=== PATIENT | female | born 1985 | race Caucasian/White ===

== ENCOUNTER 2021-02-25 07:44 | Day surgery (SDC) | payer BC, OTHER ==
[~2021-02-25 07:44] MED LIST: Midazolam 1 MG/ML 2 ML SDV ONE; Propofol 200 MG/20 ML SDV ONE; Sodium Chloride 0.9% 0 ML ONE; Sodium Tetradecyl Sulfate 1% 20 MG/2 ML SDV ONE; fentaNYL 100 MCG/2 ML SDV ONE
[2021-02-25] MEDS: Sodium Chloride 0.9% 1,000 ML IV SCH (08:37)
[2021-02-25] MEDS ORDERED: Propofol 200 MG/20 ML SDV ONE (10:43)
[2021-02-25] MEDS: Lidocaine 1% w/EPINEPHrine 50 ML, Sodium Bicarbonate 5 MEQ in Sodium Chloride 0.9% 950 ML INJECT ONE (10:50)
[2021-02-25] MEDS: Lidocaine 1% with EPINEPHrine 1:100,000 50 ML MDV ONE (10:50)
[2021-02-25] MEDS: Acetaminophen 325 MG Tab PO PRN (11:42)
--- NOTE | 2021-02-26 09:11 | OR ---
DATE OF PROCEDURE: 02/25/2021 SURGEON: Tra Chatterjee MD PROCEDURES: 1. Radiofrequency ablation, left greater saphenous vein. 2. Compression wrap, left leg ([id number]). COMPLICATIONS: None. [employer]: None. ANESTHESIA: MAC. PREOPERATIVE DIAGNOSIS: Venous insufficiency with inflammation and pain. POSTOPERATIVE DIAGNOSIS: Venous insufficiency with inflammation and pain. RISKS: Risks, benefits, alternatives, and limitations including, but not limited to infection, bleeding, perforation, false positives and false negatives were explained to the patient and she wished to proceed. PROCEDURE IN DETAIL: The patient was placed in supine position. Left greater saphenous vein was accessed at the level of the ankle. This was anesthetized with 1% lidocaine. This was accessed using a 21-gauge needle, then exchanged for a 7-Cymraes sheath via 35,000th wire. RFA probe was able to be advanced at about the level below the knee. Due to the significant tortuosity, the wire was unable to be advanced any further. Tumescent fluid was injected in 1 cm jacket around this. Direct even pressure was held as the probe was deployed x1. Sheath and device were then removed. Of note, x1 but 2 separate activations. Sheath and device were then removed. Direct pressure was held for 10 minutes. Dermabond was applied. The leg was wrapped in a 2-layer 2-stage compression wrap dressing in a figure- of-eight confirmation. Of note, the patient will be scheduled for of the remainder of the left greater saphenous vein. Tra Chatterjee MD /[id number]
== END 2021-02-25 12:27 | disposition home or self-care (01) ==
LOC: JP.SDS 07:44
PROVIDERS: ATTEND Surgery
DX: I87.2 Venous insufficiency (chronic) (peripheral) (principal); I80.3 Phlebitis and thrombophlebitis of lower extremities, unspecified; E66.9 Obesity, unspecified; Z68.38 Body mass index [BMI] 38.0-38.9, adult
CPT/HCPCS: 36475; 81025; A9270; J1642; J2250; J2704; J3010; J7030; J3490